=== PATIENT | female | born 1960 | race Caucasian/White ===

== ENCOUNTER 2020-10-02 12:37 | Emergency (ER) | payer BC ==
[~2020-10-02] VITALS: Ht 170.2 cm; Wt 64.7 kg
--- NOTE | 2020-10-02 12:45 | NUR ---
MARGIE HUGGER BLANKET PLACED, PULSE OX ON RA 85% WITH ADEQUATE WAVE FORM BUT FINGERS ARE VERY COLD. 2L NC PLACED WITH EFFECT. LUNG SOUNDS CLEAR T/O. PT VERBALIZES TAT SHE HAD DIARRHEA LAST NIGHT AND WAS ON HER WAY THIS MORING TO THE BATHROOM FEELING [place]HOU[place] SHE WAS GOING TO HAVE ANOTHER BOUT OF DIARRHEA WHEN SHE BECAME DIZZY AND THEN REMEMBERS WAKING UP ON THE FLOOR. PTS AT BEDSIDE, POC DISCUSSED AND QUESTIONS ANSWERED.
[2020-10-02] MEDS ORDERED: SODIUM CHLORIDE 0.9% 1,000ML IVBOLUS ONE (13:00)
[2020-10-02] MEDS ORDERED: SODIUM CHLORIDE FLUSH 10ML SYR IVF ONE (13:00)
[2020-10-02] MEDS ORDERED: METO25TA35 PO (13:03)
[2020-10-02] MEDS ORDERED: LEVO75TA5 PO (13:03)
--- NOTE | 2020-10-02 13:06 | NUR ---
LATE ENTRY FOR ARRIVAL EVENTS 1235 BIB EMS S/P +SYNCOPAL EPISODE WHILE WALKING TO THE BATHROOM. INITIAL BP 73/46 HR 53. EMS EST PIV AND GAVE 100ML NS [employer], FSBS = 95. PT PRESENTS A&0 X 4, PALE, COOL SKIN. BP IMPROVED 103/59 HR 70. PT TRANSFERED TO ED [facility], EKG COMPLETED AND ALL MONITORS PACED, IVF 1 LITER NS WIDE OPEN AND INFUSING W/O DIFFICULTY. DR RAINES AT BEDSIDE. PT ASSESSMENT REVIEWED AND QUESTIONS ANSWERED. ORDERS REC'D
[2020-10-02 13:10] LABS: BASOPHILS % (AUTO) 0 % (0-1); EOSINOPHILS % (AUTO) 2 % (1-7); LYMPHOCYTES % (AUTO) 3 % (22-44); MEAN CORPUSCULAR HEMOGLOBIN 31.9 pg (27.0-34.8); MEAN CORPUSCULAR HGB CONC 34.2 g/dL (32.4-35.8); MEAN PLATELET VOLUME 7.6 fL (7.4-10.4); MONOCYTES % (AUTO) 5 % (2-9); NEUTROPHILS % (AUTO) 89 % (42-75); PLATELET COUNT 166 x10^3/uL (130-400); RED BLOOD COUNT 3.84 x10^6/uL (3.82-5.3); RED CELL DISTRIBUTION WIDTH 13.5 % (9.6-15.2)
[2020-10-02 13:11] LABS: MD NO
--- NOTE | 2020-10-02 13:19 | NUR ---
PT TO CT WITH TECH TRANSPORT, RTD W/O INCIDENT TO ROOM ED 14. SBAR RPT TO MISSY KAUR
[2020-10-02 13:20] LABS: ALANINE AMINOTRANSFERASE 22 U/L (12-78); ALBUMIN 3.4 g/dL (3.4-5.0); ANION GAP 4 mmol/L (5-15); CALCIUM 7.9 mg/dL (8.5-10.1); CHLORIDE 104 mmol/L (98-107); CREATININE 1.37 mg/dL (0.55-1.02)
--- NOTE | 2020-10-02 13:28 | NUR ---
Bedside report from MISSY Tripp. Pt resting comfortably, VSS. Addendum: 10/02/20 at 1335 by DOROTHYTLE Break RN: Bedside report from MISSY Tripp. Pt resting comfortably, VSS.
[2020-10-02 13:30] LABS: ALKALINE PHOSPHATASE 70 U/L (45-117); BILIRUBIN,TOTAL 0.5 mg/dL (0.2-1.0); TOTAL PROTEIN 6.2 g/dL (6.4-8.2)
--- NOTE | 2020-10-02 13:35 | NUR ---
Report to MISSY Yepez. Marleni to assume full care. Pt 97% O2 sat on RA.
--- NOTE | 2020-10-02 14:48 | NUR ---
PT RESTING COMFORTABLY IN BED, VSS, NADN, WANTING TO GO HOME
[2020-10-02 15:07] VITALS: BP 127/70
--- NOTE | 2020-10-02 15:08 | NUR ---
PT UP FOR ROAD TEST, NO COMPLAINTS OF DIZZINESS, STATES "I FEEL FINE, JUST TIRED", BACK TO BED VSS , NADN.
--- NOTE | 2020-10-02 15:47 | NUR ---
Patient/Caregiver given discharge instructions and they have confirmed that they understand the instructions. Patient ambulatory with steady gait.
== END 2020-10-02 15:48 | disposition home or self-care (01) ==
LOC: ED 14:34
DX: S06.9X1A Unspecified intracranial injury with loss of consciousness of 30 minutes or less, initial encounter (principal); R42 Dizziness and giddiness; X58.XXXA Exposure to other specified factors, initial encounter; Y93.01 Activity, walking, marching and hiking; Y92.89 Other specified places as the place of occurrence of the external cause; Y99.8 Other external cause status
CPT/HCPCS: 36415; 70450; 71045; 80053; 84443; 85025; 93005; 96360; 99285; J7030